=== PATIENT | male | born 1990 | race Caucasian/White ===

== ENCOUNTER 2023-10-10 15:59 | Emergency (ER) | payer MEDICARE ==
[2023-10-10 16:42] VITALS: TEMP 98.1
[2023-10-10 17:03] VITALS: O2SAT 97
[2023-10-10 17:05] LABS: Absolute Neutrophil Ct (ANC) 3.71 x10^3/uL (1.4-6.9); BASOPHIL % 0.3 % (0.0-0.4); Basophil (Absolute #) 0.02 x10^3/uL (0-0.4); Eosinophil % 0.1 % (0.00-5.0); Eosinophil (Absolute #) 0.01 x10^3/uL (0-0.5); Hemoglobin 15.4 g/dL (12.5-18.0); IMMATURE GRAN # 0.03 x10^3u/L (0.00-0.03); IMMATURE GRAN % 0.4 % (0.00-0.4); Lymphocyte (Absolute #) 2.42 x10^3/uL (1.0-4.6); Lymphocytes % 36.1 % (24.0-44.0); Mean Cell Volume 86.7 fL (78-100); Mean Corpuscular Hemoglobin 29.7 pg (26-32); Mean Corpuscular Hgb Concent. 34.2 g/dL (32-36); Mean Platelet Volume 9.9 fL (7.5-11.0); Monocyte (Absolute #) 0.52 x10^3/uL (0.0-1.3); Monocytes % 7.7 % (0.0-12.0); Neutrophil % 55.4 % (36.0-66.0); Platelet Count 218 x10^3/uL (150-450); Red Blood Count 5.19 x10^6/uL (4.1-5.6); Red Cell Distribution Width 12.9 % (11.5-14.0); White Blood Count 6.7 x10^3/uL (4.0-10.5)
[2023-10-10 17:16] LABS: INR 0.96 (0.8-3.0); PROTIME 10.5 SECONDS (9.4-12.5); PTT 26.5 SECONDS (25.1-36.5)
[2023-10-10 17:18] LABS: ALBUMIN 4.8 g/dL (3.5-5.0); ANION GAP 12.4 MEQ/L (5-15); BILIRUBIN,TOTAL 0.8 mg/dL (0.2-1.3); Calcium 9.7 mg/dL (8.4-10.2); Creatinine 1 0.91 mg/dL (0.66-1.25); EST GLOMERULAR FILTRATION RATE 114.1 ML/MIN; Potassium 3.9 mmol/L (3.5-5.1); Total Protein 7.8 g/dL (6.3-8.2)
--- NOTE | 2023-10-10 17:21 | ERPHSYRPT ---
- History of Present Illness Source: patient, other () Exam Limitations: no limitations Patient Subjective Stated Complaint: C/O right hand numbness for the entire day. Patient indicates that he has intermittent hand numbness that generally goes away on it's own after 5-30 minutes; indicates that sometimes it's the left hand and other times it's the right hand. States he has been having this issue for the past 3 years. Triage Nursing Assessment: Patient ambulated back to ER without difficulties; steady gait. He is alert and oriented. No SOB. Skin tone normal. No slurred speech. Physician History: 33-year-old white male chief complaint of right forearm and hand numbness for 9 hours. Patient states that he has had intermittent bilateral upper extremity numbness since he had a CVA in 2019. Patient and state the reason for the CVA is unknown, and he has no chronic focal weakness. He does see a neurologist in [facility]. Patient also has a chronic intermittent headache since his CVA. Today complains of a right retro-orbital headache which he rates 6 out of 10 on scale. 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 Patient is not on any anticoagulants or aspirin. states that his neurologist does not know the etiology of his previous CVA and that he has had multiple tests and workups with neurology and cardiology. Timing/Duration: other (9 hours) Character of Deficits: altered sensation (Numbness right olecranon to the fingertips.) Deficits: no difficulties Baseline/Normal Cognition: alert oriented x 3 Current Cognition: alert oriented x 3 Baseline Gait: walks w/o assistance Associated Symptoms: denies symptoms, headache Allergies/Adverse Reactions: epinephrine [From Adrenalin] Allergy (Verified 10/10/23 16:16) Home Medications: Nortriptyline HCl [Pamelor] 1 cap PO HS 10/10/23 [History] Hx Tetanus, Diphtheria Vaccination/Date Given: Yes Immunizations Up to Date: Yes Travel Risk - International Travel Have you traveled outside of the country in past 3 weeks: No - Coronavirus Screening Are you exhibiting any of the following symptoms?: No Close contact with a COVID-19 positive Pt in past 14-21 Days: No - Vaccine Status Have you recieved a Covid-19 vaccination: No - Review of Systems Constitutional: No Symptoms Eyes: No Symptoms Ears, Nose, & Throat: No Symptoms Respiratory: No Symptoms Cardiac: No Symptoms Abdominal/Gastrointestinal: No Symptoms Genitourinary Symptoms: No Symptoms Musculoskeletal: No Symptoms Skin: No Symptoms Psychological: No Symptoms Endocrine: No Symptoms Hematologic/Lymphatic: No Symptoms Immunological/Allergic: No Symptoms - Past Medical History Pertinent Past Medical History: Yes Neurological History: Migraines, Paralysis, Stroke, TIA - Past Surgical History Past Surgical History: Yes Male Surgical History: Vasectomy Other Surgical History: left leg - Social History Smoking Status: Never smoker Exposure to second hand smoke: No Drug Use: none Patient Lives Alone: No - Nursing Vital Signs Nursing Vital Signs: Initial Vital Signs Temperature 98.1 F 10/10/23 16:18 Pulse Rate 71 10/10/23 16:18 Respiratory Rate 18 10/10/23 16:18 Blood Pressure 139/83 10/10/23 16:18 O2 Sat by Pulse Oximetry 98 10/10/23 16:18 Pain Scale Pain Intensity 0 Borderline hypertensive - Patrick Coma Scale Best Eye Response (Ord): (4) open spontaneously Best Verbal Response (Patrick): (5) oriented Best Motor Response (Ord): (6) obeys commands Patrick Total: 15 - Physical Exam General Appearance: no apparent distress Eye Exam: bilateral eye: normal inspection, PERRL, EOMI Ears, Nose, Throat Exam: normal ENT inspection, TMs normal, pharynx normal, moist mucous membranes Neck Exam: normal inspection, non-tender, supple, full range of motion, No meningismus, No mass, No Brudzinski, No Kernig's Respiratory: normal breath sounds, lungs clear, airway intact, No respiratory distress Cardiovascular: regular rate/rhythm (Regular rate rhythm without heaves, gallops, murmurs, or rubs.) Gastrointestinal: soft (Good bowel sounds all 4 quadrants, soft, nontender to palpation) Back Exam: normal inspection, normal range of motion, No CVA tenderness, No vertebral tenderness Extremity Exam: normal inspection, normal range of motion Peripheral Pulses: carotid (R): 2+, carotid (L): 2+ 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, oriented x 3, cooperative Coordination/Gait: normal finger to nose, normal gait, normal cerebellar function, negative Romberg's sign Motor/Sensory: no motor deficit, no pronator drift, negative Babinski's sign, sensory deficit (Patient has mild decrease in sensation in all 5 digits of right upper extremity but has good and 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 with good bilateral radial pulses and capillary return in all 10 digits above his upper extremities.), No pronator drift (R), No pronator drift (L), No weak motor strength RUE, No weak motor strength LUE, No weak motor strength RLE, No weak motor strength LLE DTR: bicep (R): 2+, bicep (L): 2+ Skin Exam: normal color, warm, dry, No rash SpO2 Interpretation: normal SpO2: 97 O2 Delivery: Room Air - Course Nursing assessment & vital signs reviewed: Yes EKG Interpreted by Me: RATE (Normal sinus rhythm/rate 60/normal QT-QTc/no acute ST segment changes/normal limit T waves.) - CT Exams Head CT Interpretation: Tele-radiologist Report (CT of the head negative/CTA of the head negative /CTA of the neck negative) Ordered Tests: Active Orders 24 hr Category Date Time Status EKG-ER Only STAT Care 10/10/23 16:[address] ANGIOGRAPHY NECK [CT] Stat Exams 10/10/23 17:01 Completed CTA HEAD W AND/OR WO CONTRAST [CT] Stat Exams 10/10/23 17:00 Completed CBC W DIFF Stat Lab 10/10/23 17:04 Completed CMP Stat Lab 10/10/23 17:04 Completed PROTIME WITH INR Stat Lab 10/10/23 17:04 Completed PTT Stat Lab 10/10/23 17:04 Completed TROPONIN Q4H Lab 10/10/23 17:04 Completed TROPONIN Q4H Lab 10/10/23 21:00 Ordered TROPONIN Q4H Lab 10/11/23 01:00 Ordered Lab/Rad Data: Laboratory Result Diagrams 10/10/23 17:04 10/10/23 17:04 Laboratory Results 10/10/23 10/10/23 10/10/23 Range/Units 17:04 17:04 17:04 WBC (4.0-10.5) x10^3/uL RBC (4.1-5.6) x10^6/uL Hgb (12.5-18.0) g/dL Hct (42-50) % MCV (78-100) fL MCH (26-32) pg MCHC (32-36) g/dL RDW (11.5-14.0) % Plt Count (150-450) x10^3/uL MPV (7.5-11.0) fL Gran % (36.0-66.0) % Immature Gran % (Auto) (0.00-0.4) % Nucleat RBC Rel Count (0.00-0.1) % Eos # (Auto) (0-0.5) x10^3/uL Immature Gran # (Auto) (0.00-0.03) x10^3u/L Absolute Lymphs (auto) (1.0-4.6) x10^3/uL Absolute Monos (auto) (0.0-1.3) x10^3/uL Absolute Nucleated RBC (0.00-0.01) x10^3u/L Lymphocytes % (24.0-44.0) % Monocytes % (0.0-12.0) % Eosinophils % (0.00-5.0) % Basophils % (0.0-0.4) % Absolute Granulocytes (1.4-6.9) x10^3/uL Basophils # (0-0.4) x10^3/uL PT 10.5 (9.4-12.5) SECONDS INR 0.96 (0.8-3.0) APTT 26.5 (25.1-36.5) SECONDS Sodium 137 (137-145) mmol/L Potassium 3.9 (3.5-5.1) mmol/L Chloride 102 (98-107) mmol/L Carbon Dioxide 26 (22-30) mmol/L Anion Gap 12.4 (5-15) MEQ/L BUN 17 (9-20) mg/dL Creatinine 0.91 (0.66-1.25) mg/dL Estimated GFR 114.1 ML/MIN Glucose 102 (74-106) mg/dL Calcium 9.7 (8.4-10.2) mg/dL Total Bilirubin 0.80 (0.2-1.3) mg/dL AST 20 (17-59) U/L ALT 24 (0-50) U/L Alkaline Phosphatase 50 (38-126) U/L Troponin I < 0.012 (0.000-0.034) ng/mL Serum Total Protein 7.8 (6.3-8.2) g/dL Albumin 4.8 (3.5-5.0) g/dL 10/10/23 Range/Units 17:04 WBC 6.7 (4.0-10.5) x10^3/uL RBC 5.19 (4.1-5.6) x10^6/uL Hgb 15.4 (12.5-18.0) g/dL Hct 45.0 (42-50) % MCV 86.7 (78-100) fL MCH 29.7 (26-32) pg MCHC 34.2 (32-36) g/dL RDW 12.9 (11.5-14.0) % Plt Count 218 (150-450) x10^3/uL MPV 9.9 (7.5-11.0) fL Gran % 55.4 (36.0-66.0) % Immature Gran % (Auto) 0.4 (0.00-0.4) % Nucleat RBC Rel Count 0.0 (0.00-0.1) % Eos # (Auto) 0.01 (0-0.5) x10^3/uL Immature Gran # (Auto) 0.03 (0.00-0.03) x10^3u/L Absolute Lymphs (auto) 2.42 (1.0-4.6) x10^3/uL Absolute Monos (auto) 0.52 (0.0-1.3) x10^3/uL Absolute Nucleated RBC 0.00 (0.00-0.01) x10^3u/L Lymphocytes % 36.1 (24.0-44.0) % Monocytes % 7.7 (0.0-12.0) % Eosinophils % 0.1 (0.00-5.0) % Basophils % 0.3 (0.0-0.4) % Absolute Granulocytes 3.71 (1.4-6.9) x10^3/uL Basophils # 0.02 (0-0.4) x10^3/uL PT (9.4-12.5) SECONDS INR (0.8-3.0) APTT (25.1-36.5) SECONDS Sodium (137-145) mmol/L Potassium (3.5-5.1) mmol/L Chloride (98-107) mmol/L Carbon Dioxide (22-30) mmol/L Anion Gap (5-15) MEQ/L BUN (9-20) mg/dL Creatinine (0.66-1.25) mg/dL Estimated GFR ML/MIN Glucose (74-106) mg/dL Calcium (8.4-10.2) mg/dL Total Bilirubin (0.2-1.3) mg/dL AST (17-59) U/L ALT (0-50) U/L Alkaline Phosphatase (38-126) U/L Troponin I (0.000-0.034) ng/mL Serum Total Protein (6.3-8.2) g/dL Albumin (3.5-5.0) g/dL - Progress Progress Note: 10/10/23 19:01 Nursing note and vital signs reviewed. No food or housing insecurity is noted. All lab results reviewed and shared with patient. CTA of of head and neck negative for acute pathology. Etiology of patient's right upper extremity paresthesia unknown, but there is no evidence of acute CVA. Patient's neurologist is perplexed about this condition per patient and . Will discharge patient with follow-up with his neurologist in the morning. 10/10/23 19:03 Patient without any focal weakness while in the ER. Counseled pt/family regarding: lab results, diagnosis, need for follow-up, rad results Medical Desision Making - Independent Historian Additional History obtained from: Spouse - Diagnostic Testing Radiological Interpretation: Reviewed by me, Teleradiologist Report - Risk of complications Low Risk: Low risk of morbidity from additional dx testing or treatment - Departure Departure Disposition: Home Clinical Impression: Paresthesia Condition: Stable Critical Care Time: No Referrals: MJ BAILEY [Primary Care Provider] - Follow up/PCP as directed Instructions: Paresthesia (DC) Additional Instructions: Follow-up with your neurologist in the morning. Return to ER for any new signs or symptoms.
[2023-10-10 18:07] VITALS: BP 114/74; PULSE 76; RESP 16
--- NOTE | 2023-10-10 18:18 | XRAY ---
CLINICAL HISTORY:RUE numbness/Headache COMPARISON:None. TECHNIQUE:Axial sections of CT neck angiogram were obtained with the administration of intravenous contrast. Reconstructed coronal and sagittal images were also obtained along with 3D reconstruction. FINDINGS: No hemodynamically significant stenosis of the common carotid, carotid bifurcation, external carotid and internal carotid arteries is seen. The extracranial portions of the vertebral basilar system are preserved without stenosis. No aneurysmal dilatation or dissection is seen. IMPRESSION: No hemodynamically significant stenosis, aneurysmal dilatation, or dissection is seen. Electronically Signed by: Laci Mares MD. (10/10/2023 18:13:21 EST)
--- NOTE | 2023-10-10 18:46 | XRAY ---
CLINICAL HISTORY:RUE numbness/MONET COMPARISON:None. TECHNIQUE:An axial non-contrast and contrast-enhanced CT scan of the brain was performed from the skull base to the high parietal region. 10 cc Multihance was administered for post-contrast images. FINDINGS: The visualized brain parenchyma shows a normal appearance. Normal opacification of the extracranial and intracranial vessels with no evidence of stenosis or occlusion. No focal parenchymal abnormalities are demonstrated. Walker-white matter differentiation is maintained. No midline shifts or deformity. No intracerebral or extra axial hematoma. Normal size and configuration of the cerebral ventricles. Normal CT appearance of the posterior fossa structures namely the cerebellar hemispheres, brainstem, and cerebellar peduncles. The IACs are unremarkable. The cerebello-pontine angles are clear. The pituitary gland, the pineal gland, and the optic chiasm are unremarkable. The osseous structures in the skull base are unremarkable. No definite calvarium fractures. Scanned paranasal sinuses are clear. No abnormal contrast enhancement was seen. IMPRESSION: 1. No acute cerebrovascular abnormality was noted. 2. Unremarkable non-enhanced and contrast-enhanced CT study for the brain. Electronically Signed by: Laci Mares MD. (10/10/2023 18:42:14 EST)
== END 2023-10-10 19:29 | disposition home or self-care (01) ==
LOC: ED 15:59
DX: R20.2 Paresthesia of skin (principal); I69.398 Other sequelae of cerebral infarction; R51.9 Headache, unspecified; Z79.899 Other long term (current) drug therapy; Z28.310 Unvaccinated for COVID-19
CPT/HCPCS: 36415; 70496; 70498; 80053; 84484; 85025; 85610; 85730; 93005; 99283

== ENCOUNTER 2024-02-18 22:26 | Emergency (ER) | payer MEDICARE ==
[2024-02-18 22:55] VITALS: TEMP 97.7
--- NOTE | 2024-02-18 23:01 | ERPHSYRPT ---
- History of Present Illness Time Seen by Provider: 02/18/24 22:45 Source: patient, family () Physician History: Pt's states they were home sitting around a campfire when pt had a 2 minute generalized tonic-clonic seizure but did not lose consciousness but vomited about 15 times without blood. Pt denies chest pain, shortness of air, abdominal pain. Pt was taking gabapentin for his seizures for about 2 years but has not had any for the past year. Allergies/Adverse Reactions: epinephrine [From Adrenalin] Allergy (Verified 02/18/24 23:13) Home Medications: No Reportable Medications [No Reported Medications] 02/18/24 [History] Hx Tetanus, Diphtheria Vaccination/Date Given: Yes - Review of Systems Constitutional: No Fever Respiratory: No Dyspnea Cardiac: No Chest Pain Abdominal/Gastrointestinal: Vomiting, No Abdominal Pain Neurological: Seizure, No Headache - Past Medical History Pertinent Past Medical History: Yes Neurological History: Migraines, Paralysis, Stroke, TIA - Past Surgical History Past Surgical History: Yes Male Surgical History: Vasectomy Other Surgical History: left leg - Social History Smoking Status: Never smoker Exposure to second hand smoke: No Drug Use: none Patient Lives Alone: No - Nursing Vital Signs Nursing Vital Signs: Initial Vital Signs Temperature 97.7 F 02/18/24 22:52 Pulse Rate 106 H 02/18/24 22:52 Respiratory Rate 22 02/18/24 22:52 Blood Pressure 92/58 02/18/24 22:52 O2 Sat by Pulse Oximetry 98 02/18/24 22:52 Pain Scale Pain Intensity 0 - [place] Coma Scale Best Eye Response (Patrick): (4) open spontaneously Best Verbal Response ([place]): (4) confused conversation Best Motor Response ([place]): (6) obeys commands [place] Total: 14 - Physical Exam General Appearance: alert, anxiety Eye Exam: bilateral eye: PERRL, EOMI Ears, Nose, Throat Exam: pharyngeal erythema (mild) Neck Exam: normal inspection Respiratory: lungs clear Cardiovascular: normal heart sounds Gastrointestinal: normal bowel sounds Back Exam: normal inspection Extremity Exam: No pedal edema 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, 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 Skin Exam: warm, dry SpO2 Interpretation: normal SpO2: 98 O2 Delivery: Room Air - CT Exams Head CT Interpretation: Tele-radiologist Report (See report) Ordered Tests: Active Orders 24 hr Category Date Time Status EKG-ER Only STAT Care 02/18/24 23:04 Active Henson [Catheter-Jarrell Henson] STAT Care 02/18/24 23:09 Active IV Insertion STAT Care 02/18/24 23:04 Active IV Insertion-2nd Peripheral STAT Care 02/18/24 23:09 Active ABDOMEN AND PELVIS W/0 CONTRAS [CT] Stat Exams 02/18/24 23:05 Ordered CHEST 2 VIEWS (PA AND LAT) Stat Exams 02/18/24 23:04 Ordered HEAD WITHOUT CONTRAST [CT] Stat Exams 02/18/24 22:29 Completed ACETAMINOPHEN Stat Lab 02/18/24 23:15 Completed AMYLASE Stat Lab 02/18/24 23:15 Completed CBC W DIFF Stat Lab 02/18/24 23:15 Completed CMP Stat Lab 02/18/24 23:15 Completed CULTURE,URINE Stat Lab 02/18/24 23:10 Received ETHYL ALCOHOL Stat Lab 02/18/24 23:15 Completed LIPASE Stat Lab 02/18/24 23:15 Completed Lactic Acid Stat Lab 02/18/24 23:06 Completed TROPONIN Q4H Lab 02/18/24 23:15 Completed TROPONIN Q4H Lab 02/19/24 03:15 Ordered TROPONIN Q4H Lab 02/19/24 07:15 Ordered UA W/RFX UR CULTURE Stat Lab 02/18/24 23:09 Completed Urine Triage Profile Stat Lab 02/18/24 23:09 Completed VBG [VENOUS BLOOD GAS] Stat Lab 02/18/24 23:07 Completed Medication Summary Generic Name Dose Route Start Last Admin Trade Name Freq PRN Reason Stop Dose Admin Sodium Chloride 1,000 mls @ 100 mls/hr 02/18/24 23:15 02/18/24 23:17 Sodium Chloride 0.9% 1000 Ml IV 03/19/24 23:14 100 mls/hr .Q10H NICKY Administration Levetiracetam 1,000 mg/ 110 mls @ 220 mls/hr 02/19/24 00:23 Dextrose IV 02/19/24 00:52 STAT ONE Lab/Rad Data: Laboratory Result Diagrams 02/18/24 23:15 02/18/24 23:15 Laboratory Results 02/18/24 02/18/24 02/18/24 Range/Units 23:15 23:15 23:15 WBC (4.0-10.5) x10^3/uL RBC (4.1-5.6) x10^6/uL Hgb (12.5-18.0) g/dL Hct (42-50) % MCV (78-100) fL MCH (26-32) pg MCHC (32-36) g/dL RDW (11.5-14.0) % Plt Count (150-450) x10^3/uL MPV (7.5-11.0) fL Gran % (36.0-66.0) % Immature Gran % (Auto) (0.00-0.4) % Nucleat RBC Rel Count (0.00-0.1) % Eos # (Auto) (0-0.5) x10^3/uL Immature Gran # (Auto) (0.00-0.03) x10^3u/L Absolute Lymphs (auto) (1.0-4.6) x10^3/uL Absolute Monos (auto) (0.0-1.3) x10^3/uL Absolute Nucleated RBC (0.00-0.01) x10^3u/L Lymphocytes % (24.0-44.0) % Monocytes % (0.0-12.0) % Eosinophils % (0.00-5.0) % Basophils % (0.0-0.4) % Absolute Granulocytes (1.4-6.9) x10^3/uL Basophils # (0-0.4) x10^3/uL pO2/FiO2 Ratio % VBG pH (7.32-7.42) VBG pCO2 at Pat Temp (42-55) mm/Hg VBG pO2 at Pat Temp (25-40) mm/Hg VBG HCO3 (22-28) meq/L VBG O2 Sat (Osiris) (95-100) VBG Base Excess (-2.0-2.0) VBG Hemoglobin VBG Carboxyhemoglobin (0.0-6.9) % T HGB POC Potassium (3.5-5.1) Sodium (135-145) mmol/L Potassium (3.5-5.1) mmol/L Chloride (98-107) mmol/L Carbon Dioxide (22-30) mmol/L Anion Gap (5-15) MEQ/L BUN (9-20) mg/dL Creatinine (0.66-1.25) mg/dL Estimated GFR ML/MIN Glucose (74-106) mg/dL Lactic Acid (0.4-2.0) Calcium (8.4-10.2) mg/dL Total Bilirubin (0.2-1.3) mg/dL AST (17-59) U/L ALT (0-50) U/L Alkaline Phosphatase (38-126) U/L Ammonia < 9 L (9-30) umol/L Troponin I < 0.012 (0.000-0.033) ng/mL Serum Total Protein (6.3-8.2) g/dL Albumin (3.5-5.0) g/dL Amylase (30-110) U/L Lipase (23-300) U/L Urine Color (Yellow) Urine Appearance (Clear) Urine pH (4.6-8.0) Ur Specific [place] (1.005-1.030) Urine Protein (Negative) Urine Glucose (UA) (Negative) mg/dL Urine Ketones (Negative) Urine Blood (Negative) Urine Nitrite (Negative) Urine Bilirubin (Negative) Urine Urobilinogen (0.2) mg/dL Ur Leukocyte Esterase (Negative) U Hyaline Cast (Auto) (0-2) /LPF Urine Microscopic RBC (0-5) /HPF Urine Microscopic WBC (0-5) /HPF Ur Epithelial Cells (None Seen) /HPF Urine Bacteria (None Seen) /HPF Urine Culture Reflexed (NO) Urine Opiates Level (NEGATIVE) Ur Methadone (NEGATIVE) Acetaminophen < 10 L (10-30) ug/ml Urine Barbiturates (NEGATIVE) Ur Phencyclidine (PCP) (NEGATIVE) Urine Amphetamine (NEGATIVE) U Benzodiazepine Level (NEGATIVE) Urine Cocaine (NEGATIVE) Urine Marijuana (THC) (NEGATIVE) Ethyl Alcohol 154 H (0-10) mg/dL 02/18/24 02/18/24 02/18/24 Range/Units 23:15 23:15 23:09 WBC 6.1 (4.0-10.5) x10^3/uL RBC 5.36 (4.1-5.6) x10^6/uL Hgb 15.7 (12.5-18.0) g/dL Hct 44.7 (42-50) % MCV 83.4 (78-100) fL MCH 29.3 (26-32) pg MCHC 35.1 (32-36) g/dL RDW 13.1 (11.5-14.0) % Plt Count 203 (150-450) x10^3/uL MPV 9.9 (7.5-11.0) fL Gran % 48.7 (36.0-66.0) % Immature Gran % (Auto) 0.8 H (0.00-0.4) % Nucleat RBC Rel Count 0.0 (0.00-0.1) % Eos # (Auto) 0.02 (0-0.5) x10^3/uL Immature Gran # (Auto) 0.05 H (0.00-0.03) x10^3u/L Absolute Lymphs (auto) 2.57 (1.0-4.6) x10^3/uL Absolute Monos (auto) 0.45 (0.0-1.3) x10^3/uL Absolute Nucleated RBC 0.00 (0.00-0.01) x10^3u/L Lymphocytes % 42.3 (24.0-44.0) % Monocytes % 7.4 (0.0-12.0) % Eosinophils % 0.3 (0.00-5.0) % Basophils % 0.5 (0.0-0.4) % Absolute Granulocytes 2.96 (1.4-6.9) x10^3/uL Basophils # 0.03 (0-0.4) x10^3/uL pO2/FiO2 Ratio % VBG pH (7.32-7.42) VBG pCO2 at Pat Temp (42-55) mm/Hg VBG pO2 at Pat Temp (25-40) mm/Hg VBG HCO3 (22-28) meq/L VBG O2 Sat ([place]iris) (95-100) VBG Base Excess (-2.0-2.0) VBG Hemoglobin VBG Carboxyhemoglobin (0.0-6.9) % T HGB POC Potassium (3.5-5.1) Sodium 144 (135-145) mmol/L Potassium 4.3 (3.5-5.1) mmol/L Chloride 108 H (98-107) mmol/L Carbon Dioxide 22 (22-30) mmol/L Anion Gap 18.9 H (5-15) MEQ/L BUN 13 (9-20) mg/dL Creatinine 1.00 (0.66-1.25) mg/dL Estimated GFR 101.9 ML/MIN Glucose 92 (74-106) mg/dL Lactic Acid (0.4-2.0) Calcium 9.3 (8.4-10.2) mg/dL Total Bilirubin 0.40 (0.2-1.3) mg/dL AST 27 (17-59) U/L ALT 35 (0-50) U/L Alkaline Phosphatase 61 (38-126) U/L Ammonia (9-30) umol/L Troponin I (0.000-0.033) ng/mL Serum Total Protein 7.8 (6.3-8.2) g/dL Albumin 4.8 (3.5-5.0) g/dL Amylase 73 (30-110) U/L Lipase 53 (23-300) U/L Urine Color (Yellow) Urine Appearance (Clear) Urine pH (4.6-8.0) Ur Specific [place] (1.005-1.030) Urine Protein (Negative) Urine Glucose (UA) (Negative) mg/dL Urine Ketones (Negative) Urine Blood (Negative) Urine Nitrite (Negative) Urine Bilirubin (Negative) Urine Urobilinogen (0.2) mg/dL Ur Leukocyte Esterase (Negative) U Hyaline Cast (Auto) (0-2) /LPF Urine Microscopic RBC (0-5) /HPF Urine Microscopic WBC (0-5) /HPF Ur Epithelial Cells (None Seen) /HPF Urine Bacteria (None Seen) /HPF Urine Culture Reflexed (NO) Urine Opiates Level NEGATIVE (NEGATIVE) Ur Methadone NEGATIVE (NEGATIVE) Acetaminophen (10-30) ug/ml Urine Barbiturates NEGATIVE (NEGATIVE) Ur Phencyclidine (PCP) NEGATIVE (NEGATIVE) Urine Amphetamine NEGATIVE (NEGATIVE) U Benzodiazepine Level NEGATIVE (NEGATIVE) Urine Cocaine NEGATIVE (NEGATIVE) Urine Marijuana (THC) NEGATIVE (NEGATIVE) Ethyl Alcohol (0-10) mg/dL 02/18/24 02/18/24 02/18/24 Range/Units 23:09 23:07 23:06 WBC (4.0-10.5) x10^3/uL RBC (4.1-5.6) x10^6/uL Hgb (12.5-18.0) g/dL Hct (42-50) % MCV (78-100) fL MCH (26-32) pg MCHC (32-36) g/dL RDW (11.5-14.0) % Plt Count (150-450) x10^3/uL MPV (7.5-11.0) fL Gran % (36.0-66.0) % Immature Gran % (Auto) (0.00-0.4) % Nucleat RBC Rel Count (0.00-0.1) % Eos # (Auto) (0-0.5) x10^3/uL Immature Gran # (Auto) (0.00-0.03) x10^3u/L Absolute Lymphs (auto) (1.0-4.6) x10^3/uL Absolute Monos (auto) (0.0-1.3) x10^3/uL Absolute Nucleated RBC (0.00-0.01) x10^3u/L Lymphocytes % (24.0-44.0) % Monocytes % (0.0-12.0) % Eosinophils % (0.00-5.0) % Basophils % (0.0-0.4) % Absolute Granulocytes (1.4-6.9) x10^3/uL Basophils # (0-0.4) x10^3/uL pO2/FiO2 Ratio 21.0 % VBG pH 7.40 (7.32-7.42) VBG pCO2 at Pat Temp 50 (42-55) mm/Hg VBG pO2 at Pat Temp 42 H (25-40) mm/Hg VBG HCO3 31.0 H* (22-28) meq/L VBG O2 Sat (Osiris) 75.8 L (95-100) VBG Base Excess 4.8 H (-2.0-2.0) VBG Hemoglobin 16.1 VBG Carboxyhemoglobin 3.1 (0.0-6.9) % T HGB POC Potassium 4.5 (3.5-5.1) Sodium (135-145) mmol/L Potassium (3.5-5.1) mmol/L Chloride (98-107) mmol/L Carbon Dioxide (22-30) mmol/L Anion Gap (5-15) MEQ/L BUN (9-20) mg/dL Creatinine (0.66-1.25) mg/dL Estimated GFR ML/MIN Glucose (74-106) mg/dL Lactic Acid 2.2 H (0.4-2.0) Calcium (8.4-10.2) mg/dL Total Bilirubin (0.2-1.3) mg/dL AST (17-59) U/L ALT (0-50) U/L Alkaline Phosphatase (38-126) U/L Ammonia (9-30) umol/L Troponin I (0.000-0.033) ng/mL Serum Total Protein (6.3-8.2) g/dL Albumin (3.5-5.0) g/dL Amylase (30-110) U/L Lipase (23-300) U/L Urine Color Yellow (Yellow) Urine Appearance Clear (Clear) Urine pH 5.5 (4.6-8.0) Ur Specific [place] 1.010 (1.005-1.030) Urine Protein Negative (Negative) Urine Glucose (UA) Negative (Negative) mg/dL Urine Ketones Negative (Negative) Urine Blood Negative (Negative) Urine Nitrite Negative (Negative) Urine Bilirubin Negative (Negative) Urine Urobilinogen 0.2 (0.2) mg/dL Ur Leukocyte Esterase Negative (Negative) U Hyaline Cast (Auto) NONE SEEN (0-2) /LPF Urine Microscopic RBC 0-2 (0-5) /HPF Urine Microscopic WBC 3-5 (0-5) /HPF Ur Epithelial Cells None Seen (None Seen) /HPF Urine Bacteria None Seen (None Seen) /HPF Urine Culture Reflexed ORDERED SEPARATELY (NO) Urine Opiates Level (NEGATIVE) Ur Methadone (NEGATIVE) Acetaminophen (10-30) ug/ml Urine Barbiturates (NEGATIVE) Ur Phencyclidine (PCP) (NEGATIVE) Urine Amphetamine (NEGATIVE) U Benzodiazepine Level (NEGATIVE) Urine Cocaine (NEGATIVE) Urine Marijuana (THC) (NEGATIVE) Ethyl Alcohol (0-10) mg/dL - Progress Progress: unchanged Discussed with : Other (Spoke with & discussed pt with Dr. Bennett(Neurosurgeon)([id number]) who accepted pt for transfer to [facility] ER.) Counseled pt/family regarding: lab results, diagnosis, rad results Medical Desision Making - Diagnostic Testing Diagnostic test were ordered, analyzed, and reviewed by me: Yes Radiological Interpretation: Teleradiologist Report - Departure Departure Disposition: Transfer ([facility]) Clinical Impression: Seiures, Hyperdense Streak in frontal cortex, Alcohol intoxication, Possible Subarachnoid Hemorrhage Condition: Stable Critical Care Time: Yes Critical Care Time(excluding separately billable procedures): Critical 30-74 mins Referrals: MJ BAILEY [Primary Care Provider] - Follow up/PCP as directed
[2024-02-18] MEDS ORDERED: Sodium Chloride 0.9% 1000 ML 1,000 ML ONE (23:15)
[2024-02-18] MEDS: Sodium Chloride 0.9% 1000 ML 1,000 ML IV SCH (23:17)
[2024-02-18 23:19] LABS: Absolute Neutrophil Ct (ANC) 2.96 x10^3/uL (1.4-6.9); BASOPHIL % 0.5 % (0.0-0.4); Basophil (Absolute #) 0.03 x10^3/uL (0-0.4); Eosinophil % 0.3 % (0.00-5.0); Eosinophil (Absolute #) 0.02 x10^3/uL (0-0.5); Hematocrit 44.7 % (42-50); Hemoglobin 15.7 g/dL (12.5-18.0); IMMATURE GRAN # 0.05 x10^3u/L (0.00-0.03); IMMATURE GRAN % 0.8 % (0.00-0.4); Lymphocyte (Absolute #) 2.57 x10^3/uL (1.0-4.6); Lymphocytes % 42.3 % (24.0-44.0); Mean Cell Volume 83.4 fL (78-100); Mean Corpuscular Hemoglobin 29.3 pg (26-32); Mean Corpuscular Hgb Concent. 35.1 g/dL (32-36); Mean Platelet Volume 9.9 fL (7.5-11.0); Monocyte (Absolute #) 0.45 x10^3/uL (0.0-1.3); Monocytes % 7.4 % (0.0-12.0); Neutrophil % 48.7 % (36.0-66.0); Platelet Count 203 x10^3/uL (150-450); Red Blood Count 5.36 x10^6/uL (4.1-5.6); Red Cell Distribution Width 13.1 % (11.5-14.0); White Blood Count 6.1 x10^3/uL (4.0-10.5)
[2024-02-18 23:21] LABS: Appearance Clear (Clear); Bilirubin Negative (Negative); Blood Negative (Negative); Glucose, Urine Negative (Negative); Ketones Negative (Negative); Leukocyte Esterase Negative (Negative); Nitrite Negative (Negative); Ph 5.5 (4.6-8.0); Protein,Urine Dip Negative (Negative); Urobilinogen 0.2 mg/dL (0.2)
[2024-02-18 23:28] LABS: Bacteria None Seen /HPF (None Seen); Epithelial Cells None Seen /HPF (None Seen); Hyaline Casts NONE SEEN /LPF (0-2); RBC 0-2 /HPF (0-5)
[2024-02-18 23:33] LABS: ADD URINE CULTURE? ORDERED SEPARATELY (NO)
[2024-02-18 23:35] LABS: ALBUMIN 4.8 g/dL (3.5-5.0); ANION GAP 18.9 MEQ/L (5-15); BILIRUBIN,TOTAL 0.4 mg/dL (0.2-1.3); Calcium 9.3 mg/dL (8.4-10.2); EST GLOMERULAR FILTRATION RATE 101.9 ML/MIN; Potassium 4.3 mmol/L (3.5-5.1); Total Protein 7.8 g/dL (6.3-8.2)
[2024-02-18 23:38] LABS: Amphetamine,Urine NEGATIVE (NEGATIVE); Barbiturate,Urine NEGATIVE (NEGATIVE); Benzodiazepine,Urine NEGATIVE (NEGATIVE); Cocaine,Urine NEGATIVE (NEGATIVE); Methadone,Urine NEGATIVE (NEGATIVE); Opiate,Urine NEGATIVE (NEGATIVE); PCP,Urine NEGATIVE (NEGATIVE); THC,Urine NEGATIVE (NEGATIVE)
[2024-02-18 23:39] LABS: ACETAMINOPHEN < 10 ug/ml (10-30); ETHYL ALCOHOL 154 mg/dL (0-10)
[2024-02-18 23:41] LABS: VBG BASE EXCESS 4.8 (-2.0-2.0); VBG CARBOXYHEMOGLOBIN 3.1 % T HGB (0.0-6.9); VBG HEMOGLOBIN 16.1; VBG O2 SATURATION 75.8 (95-100); VBG POTASSIUM 4.5 (3.5-5.1); VBG pH 7.4 (7.32-7.42)
--- NOTE | 2024-02-18 23:41 | XRAY ---
CLINICAL HISTORY: seizure, AMS COMPARISON: 10/10/2023 CTA TECHNIQUE: An axial non-contrast CT scan of the brain was performed from the skull base to the high parietal region. One of the following dose reduction techniques were utilized for this exam: Automated exposure control, adjustment of the mA and/or kV according to patient size, and use of iterative reconstruction. FINDINGS: A relatively hyperdense streak is seen parafalcine in the frontal area closely relate to the course of the YULIANA's. No focal parenchymal abnormality is demonstrated. Walker and white matter parenchyma appears unremarkable. There is no evidence of mass, or edema. No intra or extra-axial hematomas. Midline structures are intact. The basal ganglia, thalami, and brainstem are normal in appearance. The ventricular system and basal cisterns are within normal limits. The paranasal sinuses are clear. The orbits are unremarkable. No acute bone lesion. IMPRESSION: A relatively hyperdense streak is seen parafalcine in the frontal area closely related to the course of the YULIANA's. 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 Another less probabilities include non specific anterior cerebral artery or minimal subarachnoid streak. MRI and MRA are advised if clinically indicated. [facility] ER office was called at at 10:34 PM [employer], 02/18/2024 and Jaren Avendano was informed about significant findings. Electronically Signed by: Laci Mares MD. (02/18/2024 23:37:27 EDT)
[2024-02-19] MEDS ORDERED: Keppra 500 MG/5 ML ONE (00:21)
[2024-02-19] MEDS ORDERED: D5w 100ML Mini Bag 100 ML 100 ML IV ONE (00:24)
[2024-02-19] MEDS: Keppra 500 MG/5 ML*** 1,000 MG in D5w 100ML Mini Bag 100 ML 100 ML IV ONE (00:24)
[2024-02-19] MEDS ORDERED: Sodium Chloride 0.9% 0 ML ONE (00:24)
[2024-02-19 01:08] VITALS: BP 148/80; PULSE 84; RESP 16; O2SAT 95
== END 2024-02-19 01:11 | disposition short-term general hospital (02) ==
LOC: ED 22:26
DX: R56.9 Unspecified convulsions (principal); R93.0 Abnormal findings on diagnostic imaging of skull and head, not elsewhere classified; F10.129 Alcohol abuse with intoxication, unspecified; Y90.6 Blood alcohol level of 120-199 mg/100 ml; Z86.73 Personal history of transient ischemic attack (TIA), and cerebral infarction without residual deficits
CPT/HCPCS: 36000; 36415; 51702; 70450; 80053; 80143; 80307; 81001; 82077; 82140; 82150; 82805; 83605; 83690; 83930; 84484; 85025; 87086; 93005; 96365; 99285; 99291; J1953